=== PATIENT | female | born 1955 | race Caucasian/White ===

== ENCOUNTER 2019-08-22 08:51 | Day surgery (SDC) | payer OTHER, MEDICAID ==
[~2019-08-22] VITALS: Ht 162.6 cm; Wt 65.8 kg
[~2019-08-22 08:51] MED LIST: GABA300C10 PO; HYDR12.56 PO; IBUP600T27 PO; IOHEXOL 350 MG/ML 100ML IJ ONE; METO25TA5 PO; NITR0.4S29 SL; PRAV20TA3 PO
[2019-08-22] MEDS ORDERED: ANGIOMAX 250 MG VIAL IV ONE (09:04)
[2019-08-22] MEDS ORDERED: LIDOCAINE 2%HCL (LOCAL ANESTH.) INJ 20ML MDV ONE (09:04)
[2019-08-22] MEDS ORDERED: MIDAZOLAM HCL 1MG/1ML-2 ML VIAL ONE (09:04)
[2019-08-22] MEDS ORDERED: fentaNYL CITRATE 100 MCG/2 ML VL ONE (09:04)
[2019-08-22] MEDS ORDERED: SODIUM CHL 0.9% 0 ML ONE (09:04)
[2019-08-22] MEDS ORDERED: IOHEXOL 350 MG/ML 100ML IJ ONE ×2 (09:05→09:56)
== END 2019-08-22 12:30 | disposition home or self-care (01) ==
LOC: CATH 08:51
PROVIDERS: ATTEND Internal Medicine Cardiovascular Disease
DX: R94.39 Abnormal result of other cardiovascular function study (principal); I25.118 Atherosclerotic heart disease of native coronary artery with other forms of angina pectoris; Z98.890 Other specified postprocedural states; Z79.899 Other long term (current) drug therapy; Z11.59 Encounter for screening for other viral diseases
CPT/HCPCS: 93458; C1751; C1760; C1894; J1644; J2250; J3010; J7030; Q9967; U0003; 99152

== ENCOUNTER 2020-01-03 15:01 | Emergency (ER) | payer OTHER, MEDICAID ==
[~2020-01-03] VITALS: Ht 162.6 cm; Wt 63.5 kg
[~2020-01-03 15:01] MED LIST changes: -IOHEXOL 350 MG/ML 100ML IJ ONE
[2020-01-03 15:37] LABS: Basophils # (auto) 0 10 ^3/uL (0-0.2); Basophils % (auto) 0.3 % (0.0-2.0); Eosinophils # (auto) 0.1 10 ^3/uL (0-0.8); Eosinophils % (auto) 1.9 % (0.0-7.0); Hematocrit 41.2 % (36.0-46.0); Hemoglobin 13.6 g/dL (12.2-16.2); Lymphocytes % (auto) 31.4 % (10.0-50.0); Mean Corpuscular Hemoglobin 28.2 pg (28.0-32.0); Mean Corpuscular Volume 85.6 fL (80.0-100.0); Monocytes # (auto) 0.4 10 ^3/uL (0-1.3); Monocytes % (auto) 6.4 % (0.0-12.0); Neutrophils # (auto) 3.8 10 ^3/uL (1.6-8.6); Nucleated Red Blood Cells % 0.1 %; Platelet Count (auto) 139 10^3/uL (140-450); Red Blood Cells 4.81 10^6/uL (4.0-5.20); Red Cell Distribution Width 13.7 % (11.8-14.3); White Blood Cell 6.3 10^3/uL (4.4-10.8)
[2020-01-03 15:48] LABS: INR 0.93 (0.9-1.15); Partial Thromboplastin Time 27.5 sec (23.0-31.2)
[2020-01-03 15:49] LABS: Albumin 3.8 g/dL (3.4-5.0); Anion Gap 5 (5-15); Blood Urea Nitrogen 22 mg/dL (7-18); Calcium 9.2 mg/dL (8.5-10.1); Carbon Dioxide 31 mmol/L (21-32); Chloride 103 mmol/L (98-107); Glucose 103 mg/dL (74-106); Potassium 3.5 mmol/L (3.5-5.1); Sodium 139 mmol/L (136-145)
[2020-01-03 15:54] LABS: Alanine Aminotransferase 20 U/L (13-56); Alkaline Phosphatase 82 U/L (45-117); Aspartate Aminotransferase 17 U/L (15-37); BUN/Creatinine Ratio 26.8; Bilirubin, Total 0.5 mg/dL (0.2-1.0); GFR African American 90 mL/min; GFR Non-African American 74 mL/min; Total Protein 7.2 g/dL (6.4-8.2)
[2020-01-03] MEDS ORDERED: ONDANSETRON HCL 4 MG/2 ML VIAL IV ONE (16:00)
[2020-01-03] MEDS ORDERED: MORPHINE SULF INJ 2 MG/ML SYRINGE 1ML IV ONE (16:00)
[2020-01-03] MEDS ORDERED: ASPirin 81 mg TAB PO ONE (16:00)
[2020-01-03 16:31] LABS: Urine WBC None Seen /hpf (0 - 5)
[2020-01-03 16:44] LABS: Urine Bacteria NONE SEEN /hpf (None Seen); Urine Blood Negative /uL (Negative); Urine Specific Gravity 1.015 (1.001-1.035)
[2020-01-03 16:58] LABS: Alcohol, Urine < 3.0 mg/dL (0-10); Amphetamine Screen, Urine POSITIVE (NEGATIVE); Barbiturate Scree,Urine NEGATIVE (NEGATIVE); Benzodiazephine Screen, Urine NEGATIVE (NEGATIVE); Cannabinoid Screen, Urine POSITIVE (NEGATIVE); Cocaine Screen, Urine NEGATIVE (NEGATIVE); Opiate Scree,Urine NEGATIVE (NEGATIVE); Phencyclidine Screen, Urine NEGATIVE (NEGATIVE)
[2020-01-03] MEDS ORDERED: IOHEXOL 350 MG/ML 100ML IJ ONE (20:28)
[2020-01-03] MEDS ORDERED: cefTRIAXone 1GM/50ML D5W 50 ML IV ONE (21:45)
[2020-01-04 00:03] VITALS: BP 102/60
== END 2020-01-04 05:50 | disposition home or self-care (01) ==
LOC: ER 15:01
DX: R07.2 Precordial pain (principal); N39.0 Urinary tract infection, site not specified; R79.1 Abnormal coagulation profile; R91.1 Solitary pulmonary nodule; F12.20 Cannabis dependence, uncomplicated; I10 Essential (primary) hypertension; F41.9 Anxiety disorder, unspecified; F17.210 Nicotine dependence, cigarettes, uncomplicated
CPT/HCPCS: 36415; 71046; 71275; 80053; 80307; 81001; 83735; 83880; 84443; 84484; 85025; 85379; 85610; 85730; 96365; 96375; 99285; J0696; J2270; J2405; Q9967